=== PATIENT | female | born 1990 | race American Indian/Alaskan Native ===

== ENCOUNTER 2017-03-06 08:54 | Emergency (ER) | payer SELFPAY ==
--- NOTE | 2017-03-06 11:56 | XRay Report ---
LEFT HAND: History: Pain after trauma. The bony architecture is intact. Bony alignment is normal. No soft tissue abnormalities are seen. The joint spaces appear preserved. IMPRESSION: Normal left hand.
[2017-03-06 12:42] VITALS: BP 114/84
--- NOTE | 2017-03-08 18:42 | Emergency Department Report ---
Entered by MANAS COOK, acting as scribe for CED PALOMINO PA. Upper Extremity - HPI Chief Complaint: Extremity Injury, Upper Stated Complaint: LT RING FINGER SWOLLEN Time Seen by Provider: 03/06/17 10:45 Upper Extremity: Left Ring Finger Occurred When: >5 Days Mechanism: Unsure Severity: moderate Symptoms: Yes Pain with Movement (left ring finger), Yes Swelling (LT ring finger), No Deformity, No Limited Range of Movement, No Numbness, No Weakness, No Bruising/Ecchymosis, No Laceration or Abrasion Other History: 26 year old female with no significant PMHx presents to ED with c/o left ring finger edema for 1 week. Patient states she is unsure on how symptoms started. Patient describes pain as constant and rates it as 6/10. Patient reports using ice to left ring finger with mild relief. Patient denies wearing rings to her finger. Patient denies injury/trauma to digit, ecchymosis, headache, dizziness, chest pain, SOB, numbness or tingling. ED Review of Systems ROS: Stated complaint: LT RING FINGER SWOLLEN Other details as noted in HPI Comment: All other systems reviewed and negative Constitutional: denies: chills, fever Respiratory: denies: cough, shortness of breath, wheezing Cardiovascular: denies: chest pain, palpitations Gastrointestinal: denies: abdominal pain, nausea, vomiting, diarrhea Musculoskeletal: other (left ring finger pain and swelling). denies: back pain , joint swelling, arthralgia Skin: other (Swelling lt ring finher). denies: rash, lesions Neurological: denies: headache, weakness, numbness, paresthesias, confusion, abnormal gait, vertigo ED Past Medical Hx - Past Medical History Previous Medical History?: No - Surgical History Past Surgical History?: No - Family History Family history: no significant - Social History Smoking Status: Never Smoker Substance Use Type: None Other Social History: - Medications Home Medications: Home Medications Medication Instructions Recorded Confirmed Last Taken Type Ibuprofen [Motrin] 600 mg PO Q8H PRN #15 tablet 03/06/17 Unknown Rx Upper Extremity Exam - Exam General: Vital signs noted. No distress. Alert and acting appropriately. Head and Torso: No HEENT Abnormality, No Neck Tenderness, No Chest/Lungs Abnormality, No Abdominal Tenderness, No Back Tenderness Shoulder Exam: Yes Normal Range of Motion in Shoulder, No Shoulder Tenderness, No Clavicle Tenderness, No Shoulder Deformity, No AC Joint Tenderness Arm Exam: No Arm/Humerus Tenderness, No Arm Deformity Elbow: Yes Normal Range of Motion in Elbow, No Elbow Tenderness, No Elbow Deformity Forearm: No Forearm Tenderness, No Forearm Deformity, No Pain with Pronation, No Pain with Supination Wrist: Yes Normal ROM in Wrist, No Wrist Tenderness, No Wrist Deformity, No Snuffbox Tenderness, No Pain with Axial Thumb Compression Hand: Yes Digit Tenderness (TTP left ring finger with mild edema), Yes Normal ROM in Digit(s), No Hand Tenderness, No Hand Deformity, No Digit(s) Deformity, No Tendon Dysfunction CMS Exam: Yes Normal Distal Pulses, Yes Normal Capillary Refill, Yes Normal Distal Sensation, No Broken Skin ED Course Vital Signs 03/06/17 09:00 Temperature 98.3 F Pulse Rate 97 H Respiratory 16 Rate Blood Pressure 137/99 O2 Sat by Pulse 100 Oximetry - Reevaluation(s) Reevaluation #1: 03/06/17 12:14 She given Motrin 800 mg in emergency room for pain ED Medical Decision Making - Radiology Data Radiology results: report reviewed X-ray left ring finger reveal no acute fracture, dislocation or abnormalities. - Medical Decision Making ED course: Patient presented to the emergency room with reports of left ring finger swelling 1 week. She denies any injury or having anyring to her finger prior to incident. She was given Motrin 800 mg at emergency room for finger pain. X-ray reports showed no fracture or dislocation. Patient updated on diagnosis and treatment plan and discharged home to follow up with orthopedic doctor. Diagnostic/labs: X-ray of left ring finger reveal no acute fracture or dislocation and no bony abnormality. Assessment/plan 1. Pain left ring finger 2. Swelling to left ring finger Patient is stable and discharged home with prescription for Motrin and to follow -up with orthopedic doctor. Critical care attestation.: If time is entered above; I have spent that time in minutes in the direct care of this critically ill patient, excluding procedure time. ED Disposition Clinical Impression: Pain in finger of left hand, Swelling of left ring finger Disposition: - TO HOME OR SELFCARE Is pt being admited?: No Does the pt Need Aspirin: No Condition: Stable Instructions: Arthralgia (ED) Additional Instructions: Follow-up with orthopedic doctor Apply ice to affected area Take Motrin for pain and inflammation Prescriptions: Ibuprofen [Motrin] 600 mg PO Q8H PRN #15 tablet PRN Reason: Pain Referrals: SUZE REDDY MD [Staff Physician] - 03/08/17 Forms: Accompanied Note, Work/School Release Form(ED) This documentation as recorded by the JOYCE mckeon PEARL,accurately reflects the service I personally performed and the decisions made by ,CED PALOMINO PA.
== END 2017-03-06 12:40 | disposition home or self-care (01) ==
LOC: ED 08:54
DX: M79.645 Pain in left finger(s) (principal); M79.89 Other specified soft tissue disorders
CPT/HCPCS: 99283